=== PATIENT | male | born 1970 | race Caucasian/White ===

== ENCOUNTER 2017-11-15 20:56 | Inpatient (IN) | payer SELFPAY ==
[2017-11-15] VITALS (12 sets, daily range): BP systolic 143–190; BP diastolic 90–134
[~2017-11-15] VITALS: Ht 187.9 cm; Wt 110.4 kg
[~2017-11-15 20:56] MED LIST: ASA; ATARAX25 MG PO; CIPRO500 MG PO; FLAGYL500 MG PO; Flagyl500 MG IV; LIDEX0.05% T; NORVASC5 MG PO; PERCOCET 325 MG1 TA5 PO; PREDNICOT20 MG PO; PREVACID30 M1 PO; ZOFRAN4 MG PO
[2017-11-15 21:43] LABS: BASO # 0.1 10*3/uL (0.0-0.1); BASO % 1.2 % (0.0-1.0); EOS # 0.2 10*3/uL (0.0-0.4); EOS % 1.8 % (1.0-4.0); HEMATOCRIT 42.7 % (42.0-52.0); HEMOGLOBIN 14.2 g/dl (14.0-18.0); LYMPH # 2.9 10*3/uL (1.3-4.4); LYMPH % 28.1 % (27.0-41.0); MEAN CORPUSCULAR HGB 28.9 pg (27.0-31.0); MEAN CORPUSCULAR HGB CONC 33.3 g/dl (33.0-37.0); MEAN PLATELET VOLUME 9.4 fl (9.6-12.3); MONO # 0.9 10*3/uL (0.1-1.0); MONO % 9.2 % (3.0-9.0); NEUT # 6.1 10*3/uL (2.3-7.9); NEUT % 59.3 % (47.0-73.0); PLATELET COUNT AUTOMATED 289 10*3/uL (130-400); RED BLOOD COUNT 4.91 10*6/uL (4.50-5.90); RED CELL DISTRI WIDTH 13.9 % (0-14.5); WHITE BLOOD COUNT 10.3 10*3/uL (4.8-10.8)
[2017-11-15 22:00] LABS: ALBUMIN 3.7 gm/dl (3.1-4.5); ALKALINE PHOSPHATASE 57 U/L (45-117); BUN 12 mg/dl (7-24); CHLORIDE 106 mmol/L (98-107); CREATININE 1.02 mg/dL (0.70-1.30); POTASSIUM 4.1 mmol/L (3.5-5.1); SGOT/AST 23 IU/L (3-35); SGPT/ALT 40 U/L (12-78); SODIUM 134 mmol/L (136-145); TOTAL PROTEIN 7.2 gm/dL (6.4-8.2)
[2017-11-15 22:01] LABS: TROPONIN I < 0.015 ng/ml (<0.045)
[2017-11-16] VITALS (7 sets, daily range): BP systolic 149–178; BP diastolic 90–106
[2017-11-16] MEDS ORDERED: NEXIUM40 MG PO (01:41)
[2017-11-16 11:46] LABS: BASO % 0.4 % (0.0-1.0); EOS % 0.2 % (1.0-4.0); HEMATOCRIT 42.4 % (42.0-52.0); HEMOGLOBIN 13.9 g/dl (14.0-18.0); LYMPH % 20.4 % (27.0-41.0); MEAN CELL VOLUME 86.2 fl (80.0-94.0); MEAN CORPUSCULAR HGB 28.3 pg (27.0-31.0); MEAN CORPUSCULAR HGB CONC 32.8 g/dl (33.0-37.0); MEAN PLATELET VOLUME 9.1 fl (9.6-12.3); MONO # 0.6 10*3/uL (0.1-1.0); MONO % 6.5 % (3.0-9.0); NEUT % 72.1 % (47.0-73.0); PLATELET COUNT AUTOMATED 283 10*3/uL (130-400); RED BLOOD COUNT 4.92 10*6/uL (4.50-5.90); RED CELL DISTRI WIDTH 14.1 % (0-14.5); WHITE BLOOD COUNT 9.7 10*3/uL (4.8-10.8)
[2017-11-16 12:23] LABS: ALBUMIN 3.8 gm/dl (3.1-4.5); ALKALINE PHOSPHATASE 53 U/L (45-117); BUN 12 mg/dl (7-24); CHLORIDE 106 mmol/L (98-107); CREATININE 1.06 mg/dL (0.70-1.30); FREE T4 0.91 ng/dl (0.76-1.46); PHOSPHOROUS 3.3 mg/dL (2.5-4.9); SGOT/AST 11 IU/L (3-35); SGPT/ALT 37 U/L (12-78); SODIUM 140 mmol/L (136-145); TOTAL PROTEIN 7.4 gm/dL (6.4-8.2)
[2017-11-16 12:28] LABS: THYROID STIM HORMONE (HS) 0.795 uIU/ml (0.358-4.75)
[2017-11-16] MEDS ORDERED: AMLODIPINE BESY10 MG PO (13:29)
[2017-11-16] MEDS ORDERED: FENOFIBRATE54 MG PO (13:29)
[2017-11-16] MEDS ORDERED: HYDR25T PO (13:29)
== END 2017-11-16 15:40 | disposition home or self-care (01) | DRG 305 ==
LOC: ED 20:56 → EDHOLD 11-16 00:02 → 4E 11-16 00:15
PROVIDERS: Emergency Medicine; Internal Medicine
DX: I16.1 Hypertensive emergency (principal); R65.10 Systemic inflammatory response syndrome (SIRS) of non-infectious origin without acute organ dysfunction; E83.51 Hypocalcemia; E87.1 Hypo-osmolality and hyponatremia; J98.4 Other disorders of lung; E78.5 Hyperlipidemia, unspecified; I10 Essential (primary) hypertension; R47.1 Dysarthria and anarthria; K21.9 Gastro-esophageal reflux disease without esophagitis; R73.9 Hyperglycemia, unspecified; E78.1 Pure hyperglyceridemia; E66.9 Obesity, unspecified; Z72.0 Tobacco use; Z79.899 Other long term (current) drug therapy; Z82.49 Family history of ischemic heart disease and other diseases of the circulatory system; Z80.8 Family history of malignant neoplasm of other organs or systems; Z90.49 Acquired absence of other specified parts of digestive tract; Z80.6 Family history of leukemia; Z78.9 Other specified health status; Z68.31 Body mass index [BMI] 31.0-31.9, adult

== ENCOUNTER 2018-04-25 17:00 | Emergency (ER) | payer SELFPAY ==
[~2018-04-25] VITALS: Ht 182.8 cm; Wt 108.9 kg
[~2018-04-25 17:00] MED LIST changes: +AMLODIPINE BESY10 MG PO; +FENOFIBRATE54 MG PO; +HYDR25T PO; +NEXIUM40 MG PO
[2018-04-25 17:01] VITALS: BP 133/97
[2018-04-25] MEDS ORDERED: ROBITUSSIN DM 101 OZ PO (18:06)
[2018-04-25] MEDS ORDERED: AVPAK AZITHROM250 MG PO (18:06)
[2018-04-25] MEDS ORDERED: PROAIR HFA8.5 GM INH (18:06)
[2018-04-25] MEDS ORDERED: PREDNISONE50 MG PO (18:06)
== END 2018-04-25 18:40 | disposition home or self-care (01) ==
LOC: ED 17:00
DX: J18.9 Pneumonia, unspecified organism (principal); Z79.899 Other long term (current) drug therapy; Z87.891 Personal history of nicotine dependence

== ENCOUNTER 2019-01-03 19:51 | Emergency (ER) | payer SELFPAY ==
[~2019-01-03] VITALS: Ht 187.9 cm; Wt 117.9 kg
[~2019-01-03 19:51] MED LIST changes: +AVPAK AZITHROM250 MG PO; +PREDNISONE50 MG PO; +PROAIR HFA8.5 GM INH; +ROBITUSSIN DM 101 OZ PO
[2019-01-03 19:53] VITALS: BP 152/101
== END 2019-01-03 21:07 | disposition home or self-care (01) ==
LOC: ED 19:51
DX: R60.0 Localized edema (principal); M79.642 Pain in left hand; K21.9 Gastro-esophageal reflux disease without esophagitis; I10 Essential (primary) hypertension; E78.1 Pure hyperglyceridemia; E66.9 Obesity, unspecified; F17.200 Nicotine dependence, unspecified, uncomplicated; Z79.899 Other long term (current) drug therapy; Z68.30 Body mass index [BMI] 30.0-30.9, adult

== ENCOUNTER 2021-09-18 18:12 | Inpatient (IN) | payer SELFPAY ==
[~2021-09-18] VITALS: Ht 188 cm; Wt 103.0 kg
[2021-09-18 18:49] VITALS: BP 112/75
[2021-09-18 19:53] LABS: HEMATOCRIT 40.2 % (42.0-52.0); MEAN CELL VOLUME 83.6 fl (80.0-94.0); MEAN CORPUSCULAR HGB 28.5 pg (27.0-31.0); MEAN CORPUSCULAR HGB CONC 34.1 g/dl (33.0-37.0); MEAN PLATELET VOLUME 8.8 fl (9.6-12.3); PLATELET COUNT AUTOMATED 336 10*3/uL (130-400); RED BLOOD COUNT 4.81 10*6/uL (4.50-5.90); RED CELL DISTRI WIDTH 12.5 % (0-14.5); WHITE BLOOD COUNT 14.8 10*3/uL (4.8-10.8)
[2021-09-18 19:54] LABS: MANUAL DIFF REFLEX YES
[2021-09-18 20:09] LABS: ALKALINE PHOSPHATASE 49 U/L (45-117); BUN 13 mg/dl (7-24); CHLORIDE 101 mmol/L (98-107); CREATININE 0.78 mg/dL (0.70-1.30); LIPASE 328 U/L (73-393); POTASSIUM 3.2 mmol/L (3.5-5.1); SGOT/AST 14 IU/L (3-35); SGPT/ALT 34 U/L (12-78); SODIUM 136 mmol/L (136-145)
[2021-09-18 20:16] LABS: PLATELET SUFFICIENCY NORMAL (NORMAL); TOTAL CELLS COUNTED 100 #CELLS
[2021-09-18 21:26] LABS: BILIRUBIN Negative (Negative); BLOOD Negative (Negative); CLARITY Clear (Clear); COLOR Yellow (Yellow); GLUCOSE Negative (Negative); KETONE Negative (Negative); LEUKO ESTERASE Negative (Negative); NITRITE Negative (Negative); SPECIFIC GRAVITY 1.025 (1.001-1.030)
[2021-09-18 21:34] LABS: BACTERIA TRACE; WBC 0-2 wbc/hpf (0-5)
[2021-09-19 01:30] VITALS: BP 117/80; BP 138/88
[2021-09-19] MEDS ORDERED: VAZALORE81 MG PO (01:45)
[2021-09-19] MEDS ORDERED: ASPIRIN ADULT L81 M1 PO (01:46)
[2021-09-19 06:16] LABS: BASO # 0.1 10*3/uL (0.0-0.1); BASO % 0.5 % (0.0-1.0); EOS # 0.2 10*3/uL (0.0-0.4); EOS % 1.1 % (1.0-4.0); HEMATOCRIT 39.5 % (42.0-52.0); LYMPH # 2.4 10*3/uL (1.3-4.4); LYMPH % 16.8 % (27.0-41.0); MEAN CELL VOLUME 83.9 fl (80.0-94.0); MEAN CORPUSCULAR HGB 28.7 pg (27.0-31.0); MEAN CORPUSCULAR HGB CONC 34.2 g/dl (33.0-37.0); MEAN PLATELET VOLUME 9.2 fl (9.6-12.3); MONO # 1.4 10*3/uL (0.1-1.0); MONO % 9.8 % (3.0-9.0); NEUT # 10.3 10*3/uL (2.3-7.9); NEUT % 71.5 % (47.0-73.0); PLATELET COUNT AUTOMATED 348 10*3/uL (130-400); RED BLOOD COUNT 4.71 10*6/uL (4.50-5.90); RED CELL DISTRI WIDTH 12.6 % (0-14.5); WHITE BLOOD COUNT 14.4 10*3/uL (4.8-10.8)
[2021-09-19 06:20] LABS: ACT PARTIAL THROMBO TIME 28.6 SECONDS (20.0-32.1)
[2021-09-19 06:33] LABS: BUN 12 mg/dl (7-24); CHLORIDE 103 mmol/L (98-107); CHOLESTEROL 64 mg/dL (<200); CREATININE 0.75 mg/dL (0.70-1.30); LDL CHOLESTEROL 12 mg/dL (9-159); POTASSIUM 2.9 mmol/L (3.5-5.1); SGOT/AST 15 IU/L (3-35); SGPT/ALT 33 U/L (12-78); SODIUM 136 mmol/L (136-145); TOTAL PROTEIN 6.9 gm/dL (6.4-8.2); TRIGLYCERIDES 92 mg/dl (<150)
[2021-09-19 06:40] LABS: ALKALINE PHOSPHATASE 53 U/L (45-117); FREE T4 1.36 ng/dl (0.76-1.46)
[2021-09-19 07:42] LABS: VITAMIN D, 25-HYDROXY 12.6 ng/mL (30-100)
[2021-09-19 08:00] VITALS: BP 114/75
[2021-09-19 12:00] VITALS: BP 127/78
[2021-09-19 16:00] VITALS: BP 128/86
[2021-09-19 17:46] LABS: BUN 13 mg/dl (7-24); CHLORIDE 103 mmol/L (98-107); CREATININE 0.74 mg/dL (0.70-1.30); POTASSIUM 3.2 mmol/L (3.5-5.1); SODIUM 136 mmol/L (136-145)
[2021-09-19 20:00] VITALS: BP 117/84
[2021-09-20] VITALS: BP 134/84
[2021-09-20 06:17] LABS: CHLORIDE 109 mmol/L (98-107); POTASSIUM 3.3 mmol/L (3.5-5.1); SODIUM 141 mmol/L (136-145)
[2021-09-20 06:23] LABS: BUN 20 mg/dl (7-24); CREATININE 0.79 mg/dL (0.70-1.30)
[2021-09-20 06:25] LABS: BASO # 0.1 10*3/uL (0.0-0.1); BASO % 0.9 % (0.0-1.0); EOS # 0.3 10*3/uL (0.0-0.4); EOS % 2.1 % (1.0-4.0); HEMATOCRIT 40.8 % (42.0-52.0); LYMPH # 2.9 10*3/uL (1.3-4.4); LYMPH % 24.1 % (27.0-41.0); MEAN CELL VOLUME 84.5 fl (80.0-94.0); MEAN CORPUSCULAR HGB CONC 33.1 g/dl (33.0-37.0); MEAN PLATELET VOLUME 9.1 fl (9.6-12.3); MONO # 1.3 10*3/uL (0.1-1.0); MONO % 10.9 % (3.0-9.0); NEUT # 7.3 10*3/uL (2.3-7.9); NEUT % 61.4 % (47.0-73.0); PLATELET COUNT AUTOMATED 359 10*3/uL (130-400); RED BLOOD COUNT 4.83 10*6/uL (4.50-5.90); RED CELL DISTRI WIDTH 12.5 % (0-14.5); WHITE BLOOD COUNT 11.9 10*3/uL (4.8-10.8)
[2021-09-20 08:00] VITALS: BP 128/69
[2021-09-20 12:00] VITALS: BP 133/79
[2021-09-20] MEDS ORDERED: K-TAB20 MEQ PO (14:43)
[2021-09-20] MEDS ORDERED: VITAMIN D250 MCG PO (16:16)
== END 2021-09-20 16:04 | disposition home or self-care (01) | DRG 389 ==
LOC: ED 18:12 → EDHOLD 09-19 00:31 → 5E 09-19 00:31
PROVIDERS: Emergency Medicine; Internal Medicine; ADMIT Family Medicine; ATTEND Family Medicine
PROC: 0D9670Z Drainage of Stomach with Drainage Device, Via Natural or Artificial Opening (ICD-10-PCS; principal; 2021-09-19)
DX: K56.7 Ileus, unspecified (principal); R65.10 Systemic inflammatory response syndrome (SIRS) of non-infectious origin without acute organ dysfunction; K44.9 Diaphragmatic hernia without obstruction or gangrene; J98.4 Other disorders of lung; R19.7 Diarrhea, unspecified; R73.9 Hyperglycemia, unspecified; F17.210 Nicotine dependence, cigarettes, uncomplicated; E87.6 Hypokalemia; I10 Essential (primary) hypertension; E78.1 Pure hyperglyceridemia; K21.9 Gastro-esophageal reflux disease without esophagitis; Z90.49 Acquired absence of other specified parts of digestive tract; Z82.49 Family history of ischemic heart disease and other diseases of the circulatory system; Z79.51 Long term (current) use of inhaled steroids; Z79.82 Long term (current) use of aspirin; Z71.6 Tobacco abuse counseling; Z79.899 Other long term (current) drug therapy

== ENCOUNTER 2023-10-09 19:18 | Emergency (ER) | payer OTHER ==
[~2023-10-09] VITALS: Ht 185.4 cm; Wt 127.0 kg
[~2023-10-09 19:18] MED LIST changes: +ASPIRIN ADULT L81 M1 PO; +K-TAB20 MEQ PO; +VAZALORE81 MG PO; +VITAMIN D250 MCG PO
[2023-10-09 19:25] VITALS: BP 137/80
[2023-10-09] MEDS ORDERED: Acetaminophen/Hydrocodone 5 MG/325 MG TABLET PO ONE (19:40)
[2023-10-09] MEDS ORDERED: PENICILLIN V POTASSIUM 500 MG TAB PO ONE (19:45)
[2023-10-09] MEDS ORDERED: Ondansetron Hydrochloride 4 MG TAB SL ONE (19:45)
[2023-10-09] MEDS ORDERED: PENICILLIN VK500 MG PO (19:49)
== END 2023-10-09 19:57 | disposition home or self-care (01) ==
LOC: ED 19:18
DX: K02.9 Dental caries, unspecified (principal); F17.200 Nicotine dependence, unspecified, uncomplicated; Z79.899 Other long term (current) drug therapy; Z79.82 Long term (current) use of aspirin; Z90.49 Acquired absence of other specified parts of digestive tract; Z98.890 Other specified postprocedural states

== ENCOUNTER 2024-05-08 20:04 | Emergency (ER) | payer OTHER ==
[~2024-05-08] VITALS: Wt 127.0 kg
[~2024-05-08 20:04] MED LIST changes: +PENICILLIN VK500 MG PO
[2024-05-08 20:18] VITALS: BP 145/80
[2024-05-08] MEDS ORDERED: Dexamethasone Sodium Phospha 20 MG/5 ML VIAL IM ONE (20:25)
[2024-05-08] MEDS ORDERED: Ketorolac Tromethamine 60 MG/2 ML VIAL IM ONE (20:25)
[2024-05-08] MEDS ORDERED: Cyclobenzaprine Hydrochlorid 10 MG TAB PO ONE (20:25)
[2024-05-08] MEDS ORDERED: MEDROL DOSEPAK4 MG PO (22:06)
[2024-05-08] MEDS ORDERED: MELOXICAM15 MG PO (22:06)
[2024-05-08] MEDS ORDERED: PAIN RELIEF PA1 EACH T (22:06)
[2024-05-08] MEDS ORDERED: CYCLOBENZAPRINE5 M3 PO (22:06)
== END 2024-05-08 22:20 | disposition home or self-care (01) ==
LOC: ED 20:04
DX: M62.830 Muscle spasm of back (principal); K21.9 Gastro-esophageal reflux disease without esophagitis; I10 Essential (primary) hypertension; F17.200 Nicotine dependence, unspecified, uncomplicated; Z90.49 Acquired absence of other specified parts of digestive tract; Z98.890 Other specified postprocedural states